=== PATIENT | male | born 1975 | race Two or more races ===

== ENCOUNTER 2018-03-21 16:17 | Emergency (ER) | payer MEDICAID ==
[~2018-03-21] VITALS: Ht 149.9 cm; Wt 83.9 kg
[2018-03-21] MEDS ORDERED: IBUPROFEN600 MG ORAL (16:45)
[2018-03-21 16:46] VITALS: BP 146/81
[2018-03-21] MEDS ORDERED: Ketorolac 30mg Inj IV ONE (17:00)
[2018-03-21 17:29] LABS: BASOPHILS % (AUTO) 1.2 % (0.0-2.0); EOSINOPHILS % (AUTO) 1.1 % (0.0-3.0); HEMATOCRIT 43.8 % (42.0-52.0); HEMOGLOBIN 14.9 G/DL (14.2-18.0); LYMPHOCYTES % (AUTO) 26.5 % (20.0-45.0); MEAN CORPUSCULAR VOLUME 87 FL (80-99); MONOCYTES % (AUTO) 8.5 % (1.0-10.0); NEUTROPHILS % (AUTO) 62.7 % (45.0-75.0); PLATELET COUNT 191 K/UL (150-450); RED BLOOD COUNT 5.03 M/UL (4.70-6.10); RED CELL DISTRIBUTION WIDTH 11.6 % (11.6-14.8); WHITE BLOOD COUNT 7.7 K/UL (4.8-10.8)
[2018-03-21 17:32] LABS: ANION GAP 11 mmol/L (5-15); BLOOD UREA NITROGEN 23 mg/dL (7-18); CALCIUM 8.1 MG/DL (8.5-10.1); CARBON DIOXIDE 24 MMOL/L (21-32); CHLORIDE 106 MMOL/L (98-107); CREATININE 1.2 MG/DL (0.55-1.30); POTASSIUM 3.1 MMOL/L (3.5-5.1); SODIUM 141 MMOL/L (136-145)
[2018-03-21 17:33] LABS: APPEARANCE,URINE CLEAR; BILIRUBIN, URINE 1+ (NEGATIVE); GLUCOSE, URINE (UA) NEGATIVE (NEGATIVE); KETONES,URINE 1+ (NEGATIVE); LEUKOCYTE ESTERASE ,URINE 1+ (NEGATIVE); NITRITE,URINE NEGATIVE (NEGATIVE); PH,URINE 6 (4.5-8.0); PROTEIN,URINE 2+ (NEGATIVE); UROBILINOGEN,URINE 1 MG/DL (0.0-1.0)
[2018-03-21 17:34] LABS: COLOR,URINE AMBER
[2018-03-21 17:36] LABS: ALANINE AMINOTRANSFERASE 80 U/L (12-78); ALBUMIN 3.6 G/DL (3.4-5.0); ALBUMIN/GLOBULIN RATIO 0.9 (1.0-2.7); ALKALINE PHOSPHATASE 69 U/L (46-116); ASPARTATE AMINO TRANSFERASE 43 U/L (15-37); BILIRUBIN,TOTAL 0.4 MG/DL (0.2-1.0)
[2018-03-21] MEDS ORDERED: Morphine Sulfate 4mg/ml Inj IVP ONE ×2 (17:45→18:45)
--- NOTE | 2018-03-21 18:59 | Emergency Room Report ---
History of Present Illness General Chief Complaint: Male Urogenital Problems Source: Patient Present Illness HPI Patient hernia for 5-6 years. The pain is somewhat increased over the past several days. He was given a prescription for Motrin and Bactrim by his private doctor. He states that hernia slightly larger in size. Denies any nausea, vomiting or change in his bowel habits. No fevers, dysuria, rashes. Pain fairly localized and rated 7/10. PMD sent for evaluation here. No chest pain, headache, depression. He works lifting heavy objects. Allergies: Coded Allergies: No Known Allergies (Unverified , 03/21/18) Patient History Past Medical History: see triage record Social History Narrative with son Nursing Documentation-PMH Past Medical History: No Stated History Review of Systems All Other Systems: negative except mentioned in HPI Physical Exam Vital Signs Date Time Temp Pulse Resp B/P (MAP) Pulse Ox O2 Delivery O2 Flow Rate FiO2 03/21/18 16:21 98.3 95 16 146/91 96 Room Air 98.2 Sp02 EP Interpretation: reviewed, normal General Appearance: well appearing, no apparent distress, GCS 15 Head: normocephalic Eyes: bilateral eye normal inspection, bilateral eye PERRL ENT: moist mucus membranes Neck: supple Respiratory: lungs clear, normal breath sounds Cardiovascular #1: regular rate, rhythm Cardiovascular #2: 2+ femoral (R) Gastrointestinal: normal bowel sounds, non tender, soft, no organomegaly, no guarding, no rebound, hernia - R injuinal Genitourinary: normal inspection, other - R inguinal hernia Musculoskeletal: back normal, digits/nails normal, normal range of motion Neurologic: oriented x3, grossly normal Psychiatric: mood/affect normal Reflexes: 2+ knee (R), 2+ knee (L) Skin: normal color, no rash Procedures Additional Procedure Procedure Narrative Verbal consent. With direct pressure after IV morphine, partial reduction of R inguinal hernia. Consideration that might be difficult with duration of time it has been out. Tolerated well (not complete reduction, but majority reduced). Medical Decision Making Diagnostic Impression: Primary Impression: Right inguinal hernia ER Course Patient presents to the right inguinal hernia. It's been stable for 5 or 6 years he states but then has some increase in the pain recently. When he to assess status to see if there strangulation with labs. He is moving his bowels and this is against him having obstruction at this time. No imaging studies indicated at this time. treatment with toradol. Labs unremarkable. UA clear. Attempt reduction of hernia after morphine. Partial reduction. Repeat morphine. More substantial reduction, though still with bowel below groin area. Discussed need for surgery referral and modified work. Patient stable for outpatient observation and treatment. Laboratory Tests Test 03/21/18 17:14 White Blood Count 7.7 K/UL (4.8-10.8) Red Blood Count 5.03 M/UL (4.70-6.10) Hemoglobin 14.9 G/DL (14.2-18.0) Hematocrit 43.8 % (42.0-52.0) Mean Corpuscular Volume 87 FL (80-99) Mean Corpuscular Hemoglobin 29.7 PG (27.0-31.0) Mean Corpuscular Hemoglobin Concent 34.1 G/DL (32.0-36.0) Red Cell Distribution Width 11.6 % (11.6-14.8) Platelet Count 191 K/UL (150-450) Mean Platelet Volume 7.0 FL (6.5-10.1) Neutrophils (%) (Auto) 62.7 % (45.0-75.0) Lymphocytes (%) (Auto) 26.5 % (20.0-45.0) Monocytes (%) (Auto) 8.5 % (1.0-10.0) Eosinophils (%) (Auto) 1.1 % (0.0-3.0) Basophils (%) (Auto) 1.2 % (0.0-2.0) Urine Color Candice Urine Appearance Clear Urine pH 6 (4.5-8.0) Urine Specific [place] 1.020 (1.005-1.035) Urine Protein 2+ (NEGATIVE) H Urine Glucose (UA) Negative (NEGATIVE) Urine Ketones 1+ (NEGATIVE) H Urine Occult Blood Negative (NEGATIVE) Urine Nitrite Negative (NEGATIVE) Urine Bilirubin 1+ (NEGATIVE) H Urine Ictotest Positive Urine Urobilinogen 1 MG/DL (0.0-1.0) H Urine Leukocyte Esterase 1+ (NEGATIVE) H Urine RBC 0-2 /HPF (0 - 0) H Urine WBC 2-4 /HPF (0 - 0) Urine Squamous Epithelial Cells None /LPF (NONE/OCC) Urine Bacteria Occasional /HPF (NONE) Sodium Level 141 MMOL/L (136-145) Potassium Level 3.1 MMOL/L (3.5-5.1) L Chloride Level 106 MMOL/L (98-107) Carbon Dioxide Level 24 MMOL/L (21-32) Anion Gap 11 mmol/L (5-15) Blood Urea Nitrogen 23 mg/dL (7-18) H Creatinine 1.2 MG/DL (0.55-1.30) Estimate Glomerular Filtration Rate > 60 mL/min (>60) Glucose Level 107 MG/DL (74-106) H Calcium Level 8.1 MG/DL (8.5-10.1) L Total Bilirubin 0.4 MG/DL (0.2-1.0) Aspartate Amino Transferase (AST) 43 U/L (15-37) H Alanine Aminotransferase (ALT) 80 U/L (12-78) H Alkaline Phosphatase 69 U/L (46-116) Total Protein 7.6 G/DL (6.4-8.2) Albumin 3.6 G/DL (3.4-5.0) Globulin 4.0 g/dL Albumin/Globulin Ratio 0.9 (1.0-2.7) L Lipase 338 U/L (73-393) Rhythm Strip Diag. Results EP Interpretation: yes Rhythm: NSR, no PVC's, no ectopy Last Vital Signs Date Time Temp Pulse Resp B/P (MAP) Pulse Ox O2 Delivery O2 Flow Rate FiO2 03/21/18 20:42 98.0 84 18 138/78 98 Room Air 98.0 Status: improved Disposition: HOME, SELF-CARE Condition: Improved Scripts Tramadol Hcl* (ULTRAM*) 50 Mg Tablet 50 MG ORAL Q6H PRN for For Pain, #8 TAB 0 Refills take only if pain not controlled by Motrin. Prov: Cornel Zhu M.D. 03/21/18 Referrals: NOT CHOSEN SUSI/,REFERRING (PCP) Cornel Zhu M.D. March 21, 2018 18:59
[2018-03-21] MEDS ORDERED: TRAMADOL HCL50 MG ORAL (20:14)
[2018-03-21 20:26] VITALS: BP 138/78
[2018-03-21 20:42] VITALS: BP 138/78
== END 2018-03-21 20:45 | disposition home or self-care (01) ==
LOC: EDSEX 16:17 → EMR 16:30
DX: K40.90 Unilateral inguinal hernia, without obstruction or gangrene, not specified as recurrent (principal)
CPT/HCPCS: 36415; 80053; 81003; 83690; 85025; 96361; 96374; 96375; 99284; J1885; J2270; J2405